=== PATIENT | male | born 1950 | race Caucasian/White ===

== ENCOUNTER 2017-01-07 19:42 | Inpatient (IN) | payer OTHER ==
[~2017-01-07] VITALS: Ht 175.3 cm; Wt 85.7 kg
[2017-01-07] VITALS (10 sets, daily range): BP systolic 139–220; BP diastolic 75–129
--- NOTE | 2017-01-07 19:42 | NUR ---
TO BED 5 [facility] PARAMEDICS C/O UNRESPONSIVE, POSSIBLE CODE STROKE, LAST KNOWN WELL TIME 1600. ER MD AT BEDSIDE TO EVAL PT. RECEIVED PT UNRESPONSIVE, L NASAL TRUMPET NOTED, BVM 100% O2SAT. PT UNRESPONSIVE TO BILATERAL UPPER EXTREMITIES, (+) PAIN RESPONSE TO BILATERAL LOWER EXTREMITIES, L PUPILS 4MM NONREACTIVE, R PUPIL 2MM REACTIVE, NOTED VOMITUS ALL OVER PT NOTED. RHONCHI HEARD BILATERALLY ON AUSCULTATION. SKIN COLD AND CLAMY. SL 20G TO L WRIST PHYSICIAN SCRIBE. ER MD ORDER TO PREP PT FOR INTUBATION. RT AT BEDSIDE. PLACE PT ON CARDIAC MONITORING, CONTINUOUS POX.
--- NOTE | 2017-01-07 19:45 | NUR ---
PT INTUBATED PER DR. GRAY RT AT BEDSIDE. ET TUBE 7.5 24 CM AT THE LIP
--- NOTE | 2017-01-07 19:46 | NUR ---
CALLED CODE STROKE
--- NOTE | 2017-01-07 19:48 | NUR ---
VERNT SETTINGS: AC 14 VT 500 FI02 1005 PEEP 5
--- NOTE | 2017-01-07 19:50 | NUR ---
PT TO CT.
[2017-01-07] MEDS ORDERED: ETOMIDATE 2 MG/ML VIAL IV ONE (20:00)
[2017-01-07] MEDS ORDERED: SUCCINYLCHOLINE CHLORIDE 20 MG/ML VIAL IV ONE (20:00)
[2017-01-07] MEDS ORDERED: MANNITOL 12.5 GM/50 ML VIAL IV ONE (20:00)
[2017-01-07] MEDS ORDERED: PHENYTOIN SODIUM IV 1,000 MG in IV NS 0.9% 100 ML IV ONE (20:00)
--- NOTE | 2017-01-07 20:00 | NUR ---
PT RETURNED FROM CT.
--- NOTE | 2017-01-07 20:05 | NUR ---
CALL RECEIVED FROM RADIOLOGIST; TRANSFERED TO DR. GRAY
[2017-01-07] MEDS ORDERED: NICARDIPINE IN DEXTROSE,ISO-OS 200 ML IV ONE ×2 (20:11→20:30)
[2017-01-07] MEDS ORDERED: MANNITOL 50 ML IV ONE (20:11)
--- NOTE | 2017-01-07 20:11 | NUR ---
PT REC'D VIA AMBU BAG 100% O2. PT APPEARED UNRESPONSIVE AND DISORIENTED. PT INTUBATED VIA ETT 7.5 @ 24L. PT HAS CLEAR BILATERAL B/S WHEN BREATH IS GIVEN. PT PLACED ON NOTED SETTINGS PER MD ORDER. VENT IS PLUGGED INTO RED OUTLET. ALARMS ARE SET AND AUDIBLE PER POLICY. AMBU BAG BEDSIDE. WILL CONTINUE TO MONITOR Addendum: 01/07/17 at 2014 by RHINA PENA RT Amended: Links added.
[2017-01-07] MEDS ORDERED: hydrALAZINE HCL IV 20 MG VIAL ONE (20:12)
[2017-01-07] MEDS ORDERED: phenytoin SODIUM IV 250 MG/5 ML VIAL IV ONE (20:14)
[2017-01-07 20:17] LABS: BASOPHILS # (AUTO) 0.1 /CMM (0.0-0.2); EOSINOPHILS % (AUTO) 0.8 % (0.0-6.0); HEMATOCRIT 44 % (39-51); HEMOGLOBIN 14.6 g/dL (13.5-17.5); LYMPHOCYTES # (AUTO) 0.7 /CMM (0.8-4.8); LYMPHOCYTES % (AUTO) 13.3 % (20.0-44.0); MEAN CORPUSCULAR HEMOGLOBIN 31 PG (26.0-33.0); MEAN CORPUSCULAR HGB CONC 33 g/dl (31.0-36.0); MEAN CORPUSCULAR VOLUME 93 fL (80-96); MONOCYTES # (AUTO) 0.4 /CMM (0.1-1.30); NEUTROPHILS # (AUTO) 4.4 /CMM (1.8-8.9); NEUTROPHILS % (AUTO) 77.9 % (43.0-81.0); PLATELET COUNT (AUTO) 168 /CMM (150-450); RDW COEFFICIENT OF VARIATION 12.7 (11.5-15.0); RED BLOOD CELL COUNT(AUTO) 4.73 MIL/uL (4.5-6.0); WHITE BLOOD COUNT (AUTO) 5.6 K/uL (4.3-11.0)
[2017-01-07] MEDS ORDERED: hydrALAZINE HCL IV 20 MG VIAL IV ONE (20:30)
[2017-01-07 20:31] LABS: CALCIUM, SERUM 9.3 mg/dL (8.5-10.1); CREATININE 0.9 mg/dL (0.6-1.3); POTASSIUM 3.9 mmol/L (3.5-5.1)
[2017-01-07 20:37] LABS: BILIRUBIN,DIRECT 0.2 mg/dL (0.0-0.2); BILIRUBIN,TOTAL 0.5 mg/dL (0.2-1.0); TOTAL PROTEIN, SERUM 7.3 g/dL (6.4-8.2)
[2017-01-07 20:38] LABS: INR 0.92 (0.87-1.13); PROTHROMBIN TIME 9.6 SECS (9.5-12.7)
[2017-01-07 20:39] LABS: TROPONIN I 0.026 ng/mL (0.00-0.056)
--- NOTE | 2017-01-07 20:50 | NUR ---
INFORM DR ISAAC ORR BP, PER MD TO HOLD CLARA GARCIA OF RIGHT NOW.
--- NOTE | 2017-01-07 21:00 | NUR ---
DR. GRAY SPOKE TO RISA MARI REGARDING ADMISSION
--- NOTE | 2017-01-07 21:11 | NUR ---
DR. GRAY AT BEDSIDE SPEAKING TO FAMILY REGARDING POC.
--- NOTE | 2017-01-07 21:11 | NUR ---
Roya armstrong in EDM - 01/07/[address] GRAY AT BEDSIDE SPEAKING TO PT AND FAMILY REGARDING POC.
--- NOTE | 2017-01-07 21:26 | NUR ---
ICU 250
[2017-01-07] MEDS ORDERED: PROPOFOL 100 ML IV PRN (21:30)
[2017-01-07] MEDS ORDERED: ONDANSETRON HCL/PF 4 MG/2 ML VIAL IVP PRN (22:00)
[2017-01-07] MEDS ORDERED: Z GUARD REMEDY 2 OZ OINT TP PRN (22:00)
--- NOTE | 2017-01-07 22:06 | NUR ---
REPORT GIVEN TO LANI PIERCE FOR ICU BED 250 FOR NABOR.
--- NOTE | 2017-01-07 22:20 | NUR ---
RANGE AIDE: RECEIVED NEWLY INTUBATED PT VIA GURNEY FROM ER WT ADMITTING DX OF INTRACRANIAL BLEED. PLACED ON [facility] VENT AND TOLERATING SETTINGS ORDERED. REMAINED SEDATED AND OBTUNDED WT RFA PERIPHERAL IV RUNNING DIPRIVAN AT 40MCG/KG/MIN. NO EVIDENCE OF DISCOMFORT. SR ON WALL WORKER. WT SBP ABOVE 160. AFEBRILE. BODY ASSESSMENT DONE. F/C PATENT AND INTACT DRAINING YELLOW URINE TO GRAVITY. HOB AT 30 DEGREES. WILL CONTINUE TO MONITOR.
--- NOTE | 2017-01-07 22:23 | NUR ---
PT TRASNFERRED TO ICU BED 250 PER ACLS PROTOCOL.
--- NOTE | 2017-01-07 23:30 | NUR ---
GRAIN CLEANER: VERA RADIOPHARMACIST AT BEDSIDE WT AND SONS. UPDATED PT STATUS. PER RADIOPHARMACIST, KEEP SBP ABOVE 140 OR START CARDENE DRIP.
[2017-01-07] MEDS ORDERED: METOPROLOL TARTRATE INJ 5 MG/5 ML AMPUL ONE (23:42)
[2017-01-07] MEDS: METOPROLOL TARTRATE INJ 5 MG/5 ML AMPUL IVP PRN (23:46)
[2017-01-08] VITALS (99 sets, daily range): BP systolic 124–168; BP diastolic 55–85
[2017-01-08] MEDS ORDERED: PROPOFOL 100 ML IV PRN
[2017-01-08] MEDS: NICARDIPINE IN DEXTROSE,ISO-OS 200 ML IV PRN ×12 (00:34→23:09)
--- NOTE | 2017-01-08 00:35 | NUR ---
PICKLE MAKER: CARDENE DRIP STARTED AT 5MG/HR SBP IS STILL ABOVE 140 AFTER GIVEN LOPRESSOR.
[2017-01-08 02:31] LABS: ABG BASE EXCESS 5.5 mmol/L; ABG OXYGEN SATURATION 99.3 % (92.0-98.5); ABG PCO2 42.7 mmHg (35.0-45.0); ABG PH 7.463 (7.350-7.450); ABG PO2 409.4 mmHg (75.0-100.0); AaDO2 260.9 mmHg; COHb 0.3 % (0.5-1.5); MetHb 0.5 % (0.0-1.5); O2Hb 98.5 % (94.0-97.0); PEEP,BG 5 cm H2O; SITE, ABG Right Radial; VT, ABG 550 mL
[2017-01-08] MEDS ORDERED: NICARDIPINE IN DEXTROSE,ISO-OS 200 ML IV ONE ×2 (03:10→05:51)
--- NOTE | 2017-01-08 03:15 | NUR ---
RAG INSPECTOR: ABG RESULTS RECEIVED. DECREASED FI02 TO 50%. WILL CONTINUE TO MONITOR.
[2017-01-08 04:41] LABS: BASOPHILS % (AUTO) 0.3 % (0.0-2.0); HEMATOCRIT 42 % (39-51); HEMOGLOBIN 13.9 g/dL (13.5-17.5); LYMPHOCYTES # (AUTO) 0.6 /CMM (0.8-4.8); LYMPHOCYTES % (AUTO) 6.2 % (20.0-44.0); MEAN CORPUSCULAR HEMOGLOBIN 32 PG (26.0-33.0); MEAN CORPUSCULAR HGB CONC 34 g/dl (31.0-36.0); MEAN CORPUSCULAR VOLUME 95 fL (80-96); MONOCYTES % (AUTO) 10.4 % (2.0-12.0); NEUTROPHILS # (AUTO) 8.3 /CMM (1.8-8.9); NEUTROPHILS % (AUTO) 83.1 % (43.0-81.0); PLATELET COUNT (AUTO) 172 /CMM (150-450); RDW COEFFICIENT OF VARIATION 13.7 (11.5-15.0); RED BLOOD CELL COUNT(AUTO) 4.37 MIL/uL (4.5-6.0)
[2017-01-08 04:56] LABS: CALCIUM, SERUM 8.9 mg/dL (8.5-10.1); CREATININE 0.6 mg/dL (0.6-1.3); MAGNESIUM 1.8 mg/dL (1.8-2.4); PHOSPHORUS 2.7 mg/dL (2.5-4.9); POTASSIUM 3.4 mmol/L (3.5-5.1)
--- NOTE | 2017-01-08 06:15 | NUR ---
MEDICAL SURGERY NURSE: DIPRIVAN STOPPED AT THIS TIME. NO MOVEMENT NOTED UNLESS WT DEEP PAIN STIMULI. UNLABORED BREATHING, REMAINED SR ON COUNTERPERSON. NOW ON CARDENE AT 12MG/HR TO KEEP SBP LESS THAN 140. HOB KEPT AT 30 DEGREES. SAFETY PRECAUTION NOTED AT ALL TIMES.
--- NOTE | 2017-01-08 06:55 | NUR ---
MAINTENANCE ELECTRICIAN: STILL OFF DIPRIVAN WT NO ACUTE DISTRESS, NO EVIDENCE OF DISCOMFORT. WILL ENDORSE TO DAY SHIFT FOR CONTINUITY OF CARE.
--- NOTE | 2017-01-08 07:45 | NUR ---
ICU/RN - Initial Notes Received pt in orally intubated to mechanical vent with settings as ordered. Pt dx Intracranial Hemorrhage. On Cardene gtt, titrated to keep sBP <140 as ordered. Pt responds to deep painful stimuli. Positive gag reflex. Left nare NGT patent and intact, clamped. Pt kept NPO as ordered. Gary catheter intact draining urine to gravity. Safety and comfort measures in place. Will continue to monitor pt closely.
[2017-01-08] MEDS ORDERED: ETOMIDATE 2 MG/ML VIAL IV ONE (08:29)
[2017-01-08] MEDS ORDERED: SUCCINYLCHOLINE CHLORIDE 20 MG/ML VIAL IV ONE (08:29)
[2017-01-08] MEDS ORDERED: FEE EMEERGENCY 1 MIN EA MC ONE (08:29)
--- NOTE | 2017-01-08 08:30 | NUR ---
ICU/RN - Notes Dr Boyer (Neurology) at bedside for evaluation. Received orders for repeat CT scan head. Will carry out.
[2017-01-08] MEDS: METOPROLOL TARTRATE INJ 5 MG/5 ML AMPUL IVP PRN ×3 (08:37→23:10)
--- NOTE | 2017-01-08 09:35 | NUR ---
ICU/RN - Notes Pt taken to radiology for CT scan head via ACLS protocol.
--- NOTE | 2017-01-08 10:45 | NUR ---
ICU/RN - Notes Javier FILLER SHREDDER at bedside for evaluation. Speaking with family regarding repeat CT scan results and plan of care.
[2017-01-08] MEDS: POTASSIUM CL. PREMIX PERIPHER. 50 ML IV SCH ×2 (11:24→12:58)
--- NOTE | 2017-01-08 12:15 | NUR ---
ICU/RN - Notes Lito FISHERY DIVISION CHIEF (Neurosurgery) speaking with family at bedside.
[2017-01-08] MEDS: ACETAMINOPHEN 325 MG TABLET PO PRN (18:23)
--- NOTE | 2017-01-08 18:25 | NUR ---
ICU/RN - Notes Pt noted with temperature 102.0F. Tylenol administered as ordered. Cooling measures in place. Will continue to monitor.
--- NOTE | 2017-01-08 20:05 | NUR ---
CONVEYOR MAN RECEIVED PT TO ROOM #250.FAMILY MEMBERS PRESENT UPDATED REGARDING POC/COMFORT CARE. PT HAD SEVERE CVA WITH ICB WITH MIDLINE SHIFT PRIOR TO ADMISSION. NEUROLOGY/NEURO SGY AWARE OF PT,S CONDITION PT NOT RECOMMENDED FOR SURGICAL INTERVENTION. PT ON CARDENE GTT @ 14MG/HR FOR BP MGMT WITH GOAL TO MAINTAIN SBP OF 140,S. PHYSICAL ASSESSMENT COMPLETED. SEE FLOW SHEET/NEURO ASSESS FOR INFO. PT UNRESPONSIVE TO DEEP EXTERNAL STIMULI. PT WITH DECEBERATE POSTURING NOTED. PT WITH TEMP OF 101.COOLING MEASURES PROVIDED. EMOTIONAL SUPPORT PROVIDED TO FAMILY MEMBERS.
[2017-01-08] MEDS: FAMOTIDINE/PF INJ 20 MG/2 ML VIAL IV SCH (20:21)
--- NOTE | 2017-01-08 20:21 | NUR ---
CITY ROUTE DRIVER DF PT FAMILY AT BEDSIDE DISCUSSING CARE OPTIONS. PT WOULD LIKE COMFORT CARE THEY WILL NOTIFY MEDICAL TEAM WHEN THEY ARE READY FOR COMFORT CARE ORDERS. FAMILY WOULD LIKE PT TO RECEIVE MEDICATION TO CONTROL BP FOR NEXT 24 HOURS AND MEDICATIONS FOR SEDATION AND PAIN MGMT. PEPCID NON ADMIN PER FAMILY REQUEST.
[2017-01-09] VITALS (37 sets, daily range): BP systolic 79–169; BP diastolic 55–82
--- NOTE | 2017-01-09 00:43 | NUR ---
DOOR TO DOOR SALESPERSON DF PT WITH ELEVATED SBP 160,S I MEDICATED PT AT 2300 WITH LOPRESSOR 5MG/5ML. I CHANGED BP CUFF TO XL SWITCHED ARMS PT SBP WITHIN GOAL RANGE SBP OF 140,S. PER FAMILY REQUEST WILL ELECT COMFORT MEASURES IN THE AM WHEN ALL FAMILY MEMBERS ARE PRESENT/IN AGREEMENT. COMFORT CARE DISCUSSED WITH PT,S SONS/.
[2017-01-09] MEDS: NICARDIPINE IN DEXTROSE,ISO-OS 200 ML IV PRN ×6 (00:56→09:09)
[2017-01-09] MEDS: ACETAMINOPHEN 325 MG TABLET PO PRN (02:18)
[2017-01-09 04:31] LABS: BASOPHILS % (AUTO) 0.1 % (0.0-2.0); HEMATOCRIT 45 % (39-51); HEMOGLOBIN 14.8 g/dL (13.5-17.5); LYMPHOCYTES # (AUTO) 0.4 /CMM (0.8-4.8); LYMPHOCYTES % (AUTO) 3.5 % (20.0-44.0); MEAN CORPUSCULAR HEMOGLOBIN 31 PG (26.0-33.0); MEAN CORPUSCULAR HGB CONC 33 g/dl (31.0-36.0); MEAN CORPUSCULAR VOLUME 94 fL (80-96); MONOCYTES # (AUTO) 1.1 /CMM (0.1-1.30); MONOCYTES % (AUTO) 9.2 % (2.0-12.0); NEUTROPHILS # (AUTO) 10.5 /CMM (1.8-8.9); NEUTROPHILS % (AUTO) 87.2 % (43.0-81.0); PLATELET COUNT (AUTO) 173 /CMM (150-450); RED BLOOD CELL COUNT(AUTO) 4.75 MIL/uL (4.5-6.0)
[2017-01-09 05:17] LABS: CREATININE 1.2 mg/dL (0.6-1.3); POTASSIUM 3.4 mmol/L (3.5-5.1)
[2017-01-09] MEDS: FAMOTIDINE/PF INJ 20 MG/2 ML VIAL IV SCH (08:11)
--- NOTE | 2017-01-09 08:30 | NUR ---
Family at bedside. SAXOPHONE ASSEMBLER spoke with family about plan of care. Heart rate in 160s at this time. requested to wait for patient's sister to arrive before making any final decisions.
[2017-01-09] MEDS ORDERED: POTASSIUM CL. PREMIX PERIPHER. 50 ML IV ONE (10:00)
[2017-01-09] MEDS ORDERED: MORPHINE SULFATE PF DRIP 250 MG in IV D5W 240 ML IV PRN (11:30)
[2017-01-09] MEDS ORDERED: LORAZEPAM INJ 2 MG/ML VIAL IV PRN (11:30)
[2017-01-09] MEDS ORDERED: MORPHINE SULFATE INJ 10 MG/ML DISP.SYRIN IV ONE (11:30)
[2017-01-09] MEDS ORDERED: SCOPOLAMINE HBR 1 EA PATCH.TD72 TD SCH (11:30)
--- NOTE | 2017-01-09 12:48 | NUR ---
PASTORAL MINISTRIES PROFESSOR - BG - Patient now on morphine drip in anticipation of removal from ventilator. Several family members are at bedside.
--- NOTE | 2017-01-09 13:43 | NUR ---
ADJUNCT LATIN PROFESSOR BG - Patient at 13:30 with family members at bedside. [facility] was notified.
--- NOTE | 2017-01-09 14:11 | NUR ---
COMFORT MEASURES RN NOTE 1310: Extubated patient as ordered. On Morphine drip @ 5mg/hr. Family at bedside, aware for the procedure. Turned off monitor per family request. 1320: Placed Morphine on 10mg/hr for increased work of breathing. 1330: Patient , no peripheral pulses appreciated, Asystole on the monitor. No chest rise. Time of called by Estela GARIBAY CN, made nurse sup aware and admitting. Informed Alfonso LORD. 1350: [facility] called, spoke with Ángel with case number as ff: [id number]. Cleaned body and will bring to [facility] [place]. Nimo, signed release of body form and belongings list.
--- NOTE | 2017-01-09 14:28 | NUR ---
Brought body to the morgue by security, accompanied by me. said they will call mortuary to warehouse picker body.
== END 2017-01-09 13:30 | disposition expired | DRG 208 ==
LOC: ER 19:43 → ICU 21:52
PROVIDERS: ADMIT Nurse Practitioner Acute Care; ATTEND Nurse Practitioner Acute Care
PROC: 0BH17EZ Insertion of Endotracheal Airway into Trachea, Via Natural or Artificial Opening (ICD-10-PCS; principal; 2017-01-07)
PROC: 5A1945Z Respiratory Ventilation, 24-96 Consecutive Hours (ICD-10-PCS; principal; 2017-01-07)
DX: J96.00 Acute respiratory failure, unspecified whether with hypoxia or hypercapnia (principal); I61.0 Nontraumatic intracerebral hemorrhage in hemisphere, subcortical; G93.41 Metabolic encephalopathy; G91.1 Obstructive hydrocephalus; I16.9 Hypertensive crisis, unspecified; E87.6 Hypokalemia; H57.02 Anisocoria; Z66 Do not resuscitate; Z87.442 Personal history of urinary calculi; R40.2410 Glasgow coma scale score 13-15, unspecified time; Z51.5 Encounter for palliative care
CPT/HCPCS: 31720; 36415; 36600; 70450-TC; 71010-TC; 80048-TC; 80076-TC; 82803-TC; 83605-TC; 83735-TC; 84100-TC; 84484-TC; 85025-TC; 85730-TC; 86850-TC; 87081-TC; 94002-TC; 94003-TC; 94799-TC; 99082-TC; A4606; A6402; J0330; J0360; J1165; J2150; J2270; J2274; J3480; J3490; J7030; J7050; J7060; Z7610